=== PATIENT | male | born 1935 | race Caucasian/White ===

== ENCOUNTER 2017-09-18 08:21 | Emergency (ER) | payer OTHER ==
[~2017-09-18] VITALS: Ht 165.1 cm; Wt 81.7 kg
[~2017-09-18 08:21] MED LIST: LIPITOR40 MG PO; LOTENSIN10 MG PO; MOTRIN800 MG PO; OXYCODONE5 MG PO; PROTONIX40 MG PO; Tylenol Regular Stre PO; ULTRAM50 MG PO; UNABLEOBTAIN; ZOFRAN4 MG PO
[2017-09-18] MEDS ORDERED: AUGMENTIN875 MG PO (09:23)
[2017-09-18 09:48] VITALS: BP 152/89
== END 2017-09-18 10:05 | disposition home or self-care (01) ==
LOC: EME 08:21
DX: S50.812A Abrasion of left forearm, initial encounter (principal); W55.03XA Scratched by cat, initial encounter; E78.5 Hyperlipidemia, unspecified; I10 Essential (primary) hypertension; Z79.82 Long term (current) use of aspirin
CPT/HCPCS: 99281; 99283